=== PATIENT | male | born 1990 | race Caucasian/White ===

== ENCOUNTER 2017-05-23 11:26 | Inpatient (IN) | payer BC ==
[~2017-05-23] VITALS: Ht 167.6 cm; Wt 77.1 kg
--- NOTE | 2017-05-23 11:28 | NUR ---
27 YO MALE TO BED 2A FOR EVAL OF ALOC. [place] AND WAS AT A TRAINING MEETING. PER COWORKERS PATIENT WAS DRAWING A "BEAVER FOR A LONG TIME AND DID NO REMEMBER INCIDENT" . CALL WAS CALLED IN POSSIBLE SEIZURE BUT PATIENT HAS NO HISTORY OF SUCH AND BYSTANDERES SAW NO SEIZURE LIKE ACTIVITY. PLACED ON CM.
--- NOTE | 2017-05-23 11:37 | NUR ---
PATIENT HAS NO COMPLAINTS UPON ARRIVAL.
--- NOTE | 2017-05-23 11:38 | NUR ---
PER MEDIC PATIENT HAS BEEN UNDER ALOT OF STRESS THE LAST FEW WEEKS AND IS ALSO NOT SLEEPING WELL. HE REPORTS EATING NORMALY.
[2017-05-23 12:15] LABS: BASOPHIL % 0.3 % (0-2); PLATELET COUNT 272 x10^3mcL (130-400); RED CELL DISTRIBUTION WIDTH 12.9 % (11.5-14.5)
--- NOTE | 2017-05-23 12:22 | NUR ---
RETURN DROM CT SCAN. PORTABLE CXR TAKEN.
[2017-05-23 12:28] LABS: CALCIUM 9.2 mg/dL (8.5-10.1); CHLORIDE SERUM 99 mmol/L (98-107); CREATININE SERUM 0.8 mg/dL (0.7-1.3); GFR1 > 60 mL/min; GLUCOSE SERUM 116 mg/dL (74-106); POTASSIUM SERUM 3.6 mmol/L (3.5-5.1); SODIUM SERUM 135 mmol/L (136-145)
[2017-05-23 12:32] LABS: ALBUMIN 4.6 g/dL (3.4-5.0); ALKALINE PHOSPHATASE 58 U/L (46-116); ALT/SGPT 65 U/L (16-63); AST/SGOT 20 U/L (15-37); BILIRUBIN TOTAL 0.67 mg/dL (0.20-1.00)
[2017-05-23 12:34] LABS: CHOLESTEROL 121 mg/dL (<200); TOTAL PROTEIN, SERUM 8.3 g/dL (6.4-8.2)
--- NOTE | 2017-05-23 13:20 | NUR ---
PATIENT WAS DISCHARGED AT 1311 AT 1318 I WAS CALLED TO FRONT OD ED LOBBY FOR A "SHAKING MAN" PATIENT APPEARED TO BE HAVINF A SEIZURE FACE DOWN IN THE PLANTER SHAKING. PATIENT WAS TURNED AND PLACED IN W/C WITH ASSISTANCE AND TAKEN BACK TO ROOM 2A. DR CARLOS WAS NOTIFIED AND PATIENT WILL BE ADMITTED FOR NEW ONSET SEIZURE. PLACED ON CM WITH HEAT RATE IN 150'S. IV START.
--- NOTE | 2017-05-23 14:00 | NUR ---
TOOK THE PIG TAIL DRAIN OUT. PT COOPERATED WELL.
--- NOTE | 2017-05-23 15:18 | NUR ---
ATTEMPTED TO CALL REPORT.
--- NOTE | 2017-05-23 15:49 | NUR ---
REPORT TO ROXANNA DELGADO. PATIENT REMAINS STABLE FOR TRANSFER.
[2017-05-23 16:03] VITALS: BP 128/79
[2017-05-23 16:04] LABS: AMPHETAMINE QUAL UR NONE DETECTED (NEG <=1000)
[2017-05-23 16:07] VITALS: BP 128/79
--- NOTE | 2017-05-23 16:14 | NUR ---
RECEIVED PATIENT FROM ED VIA GUERNEY, PATIENT ALERT AND ORIENTED, TELE # 25 ST, IV ACCESS TO LEFT HAND WNL, NO C/O PAIN AT THIS TIME, SEIZURE PRECAUTIONS IN PLACE, ORIENTED PATIENT TO ROOM AND SURROUNDINGS, BED IN LOW POSITION, BED RAILS UP X 2, CALL LIGHT WITHIN REACH, WILL ENDORSE CARE TO PRIMARY NURSE DANNY HENDERSON
[2017-05-23 16:36] LABS: MAGNESIUM 2.3 mg/dL (1.8-2.4); PHOSPHOROUS 2.4 mg/dL (2.5-4.9)
[2017-05-23 16:44] LABS: T3 TOTAL 1.16 ng/mL
--- NOTE | 2017-05-23 16:45 | NUR ---
PT RESTING IN BED. DENIES HEADACHE. NO DISTRESS NOTED.
[2017-05-23 16:50] LABS: FREE T4 1.26 ng/dL (0.76-1.46); FREE THYROXINE INDEX 3.5 ug/dL (1.4-4.5); T4(THYROXINE) 9.7 ug/dL (4.7-13.3)
--- NOTE | 2017-05-23 19:15 | NUR ---
PT IS SLEEPING. NO SIGNS OF SZ NOTED. SZ PRECAUTIONS ON. WILL MONITOR.
--- NOTE | 2017-05-23 19:42 | NUR ---
RECEIVED PATIENT IN BED SLEEPING WITH NO INDICATION OF PAIN AND DISCOMFORT NOTED AT THIS TIME, FAMILY MEMBERS AT BEDSIDE. NO SIGN OF SEIZURE NOTED. SIDERAILS X4 PADDED FPR SEIZURE PRECAUTION. TELE#25 ST /SR ON MONITOR. CLEAR BS TO AUSCULTATION SATTING AT 98% RA. IV TO LEFT HAND INTACT AND INFUSING WELL. WILL CONTINUE TO MONITOR.
[2017-05-23 21:04] LABS: UA SPECIFIC GRAVITY 1.015 (1.005-1.035); microscopic required? YES; urine erythrocyte NEGATIVE (NEGATIVE)
[2017-05-23 21:11] VITALS: BP 126/73
--- NOTE | 2017-05-23 22:22 | NUR ---
NEURO CHECK- PATIENT AWAKE, ALERT AND ORIENTED ABLE TO MAKE NEEDS KNOWN. DENIES NUMBNESS AND WEAKNESS OF THE EXTREMETIES. ABLE TO MOVE ALL EXTREMETIES. SPEECH CLEAR BUT SLOW TO TALK. NO SIGN OF SEIZURE NOTED THIS TIME.
--- NOTE | 2017-05-23 23:43 | NUR ---
SLEEPING WITH NO SIGN OF DISTRESS NOTED, BREATHING EASY AND NONLABOR. AT BEDSIDE.
--- NOTE | 2017-05-24 05:06 | NUR ---
SLEPT AT LONG INTERVALS, NO SIGN OF SEIZURE NOTED THE ENTIRE SHIFT. CHCKED AT INTERVALS FOR NEEDS AND SAFETY. ALL NEEDS ATTENDED. AT BEDSIDE.
[2017-05-24 05:52] VITALS: BP 125/84
--- NOTE | 2017-05-24 06:30 | NUR ---
PATIENT STATED THAT WHEN HE WOKES UP HE FEELS LIKE HE CAN'T BREATHE FOR A FEW MINUTES ONLY AND AFTER THAT HE FEELS BETTER.
[2017-05-24 06:54] LABS: BASOPHIL % 0.4 % (0-2); PLATELET COUNT 226 x10^3mcL (130-400); RED CELL DISTRIBUTION WIDTH 13.2 % (11.5-14.5)
[2017-05-24 06:56] LABS: CALCIUM 8.5 mg/dL (8.5-10.1); CARBON DIOXIDE 29.3 mmol/L (21-32); CHLORIDE SERUM 106 mmol/L (98-107); CREATININE SERUM 0.8 mg/dL (0.7-1.3); GFR1 > 60 mL/min; GLUCOSE SERUM 89 mg/dL (74-106); MAGNESIUM 2.4 mg/dL (1.8-2.4); PHOSPHOROUS 3.6 mg/dL (2.5-4.9); POTASSIUM SERUM 4.2 mmol/L (3.5-5.1); SODIUM SERUM 140 mmol/L (136-145)
--- NOTE | 2017-05-24 07:40 | NUR ---
RECEIVED PATIENT RESTING IN BED COMFORTABLY, A/O X4, CLEAR SPEECH, NO NEURO DEFICITS NOTED. SUKH AT BEDSIDE. TELE # [address], DENIES CHEST PAIN. BREATHING EVEN UNLABBORED ON RA, DENIES SOB, HOB ELEVATED. PATIENT DENIES ANY PAIN. IV TO LH INTACT INFUSING NS AT 100 ML/HR FREE FROM REDNESS AND INFILTRATION. SEIZURE PRECAUTIONS MAINTAINED, NO SEIZURE ACTIVITY NOTED. PATIENT CALM AND COOPERATIVE WITH CARE. INSTRUCTED TO CALL FOR ASSISTANCE IF NEEDED. CALL LIGHT WITHIN REACH, BED IN LOW POSITION. WILL MONITOR.
--- NOTE | 2017-05-24 09:02 | NUR ---
CY AT BEDSIDE FOR ROUTINE EEG PER MD ORDER.
--- NOTE | 2017-05-24 09:17 | NUR ---
ROUNDS MADE- DR. GURROLA, RESIDENT TEAM, CHARGE NURSE AND PRIMARY NURSE AT BEDSIDE. POC REVIEWED WITH PATIENT- PATIENT HAVING EEG DONE- EXPLAINED PROCEDURE AND PURPOSE. PATIENT WILL HAVE MRI TODAY AND WILL NEED TO FOLLOW UP WITH NEUROLOGIST UPON DISCHARGE. ALL QUESTIONS AND CONCERNS ADDRESSED. WILL MONITOR.
[2017-05-24 09:51] VITALS: BP 121/80
--- NOTE | 2017-05-24 10:55 | NUR ---
EEG COMPLETED BY OUTSIDE SERVICE
--- NOTE | 2017-05-24 13:28 | NUR ---
PATIENT TAKEN DOWN TO RADIOLOGY FOR MRI PER MD ORDER.
[2017-05-24 13:54] VITALS: BP 112/73
--- NOTE | 2017-05-24 14:30 | NUR ---
RECEIVED PATIENT BACK FROM RADIOLOGY S/P MRI BRAIN. PATIENT REMAINS IN STABLE CONDITION, REAPPLIED TELE MONITOR, IVF RESUMED. FAMILY AT BEDSIDE. ALL NEEDS ATTENDED TO. SAFETY PRECAUTIONS MAINTAINED. WILL MONITOR.
--- NOTE | 2017-05-24 16:27 | NUR ---
DR. RIVERA (DO-RESIDENT) AT BEDSIDE TO SPEAK WITH PATIENT AND AT BEDSIDE REGARDING HOW PATIENT IS FEELING AND RESULTS. ALL QUESTIONS AND CONCERNS ADDRESSED.
[2017-05-24 17:26] VITALS: BP 117/84
--- NOTE | 2017-05-24 18:37 | NUR ---
SPOKE WITH PATIENTS AND SHE INFORMED ME THAT SHE SPOKE WITH DR. RIVERA ABOUT 2 HOURS AGO AND INFORMED HIM SHE NOTICED PATIENT HAD ABOUT 10 EPISODES WHERE HIS BODY WOULD TENSE UP/CONTRACT. PATIENTS STARTED DOCUMENTING EACH EPISODE SINCE ABOUT 1641 AND NOTICED PATIENT HAD AN EPISODE EVERY [address] RIVERA AND INFORMED HIM OF THE ABOVE. NO NEW ORDERS RECEIVED.
--- NOTE | 2017-05-24 19:00 | NUR ---
REPORT GIVEN TO ABDOUL HENDERSON, ALL QUESTIONS AND CONCERNS ADDRESSED. ALL CARES ENDORSED.
--- NOTE | 2017-05-24 19:22 | NUR ---
RECEIVED PATIENT IN BED SLEEPING WITH NO SIGN OF ACUTE RESPIRATORY DISTRESS NOTED, BREATHING EASY AND NONLABOR. TELE#25, NSR ON MONITOR. CLEAR BS SATTING AT 98% RA. AT BEDSIDE. IV TO LEFT HAND INTACT AND INFUSING WELL. WILL CONTINUE TO MONITOR. CALL LIGHT WITHIN REACH.
--- NOTE | 2017-05-24 20:30 | NUR ---
PATIENT HAD EPISODE OF BODY AND EXTREMETIES TENSE UP WITH EYE NYSTAGMUS FOR ABOUT 2 MINUTES. MD AWARE AND ADVISED TO TRACK DOWN ALL EPISODE. WILL CONTINUE TO MONITOR.
[2017-05-24 20:54] VITALS: BP 123/79
--- NOTE | 2017-05-25 00:06 | NUR ---
PATIENT AWAKE AND AGITATED ATIVAN 1MG IVP GIVEN PRESCRIBED. WILL CONTINUE TO MONITOR. AT BEDSIDE.
--- NOTE | 2017-05-25 05:28 | NUR ---
SLEPT FAIRLY, NO SIGN OF RESPIRATORY DISTRESS NOTED. CHECKED AT INTERVALS FOR NEEDS AND SAFETY. NO SEIZURE ACTIVITY NOTED. AT BEDSIDE.
[2017-05-25 05:31] VITALS: BP 130/76
[2017-05-25 05:32] VITALS: BP 112/73; BP 130/76
--- NOTE | 2017-05-25 07:30 | NUR ---
PT HAD EPISODE OF GENERAL BODY SATHISH. EYES TWITCHING, FACIAL RIGIDITY. PT REMAINED AWARE OF SURROUNDING, WHEN ASKED PT RESPONDED I AM CONSCIOUS DURING EPISODE. PT REPORTS BEING SLEEPY AFTER EPISODE. AT BEDSIDE. CALL LIGHT WITHIN REACH.
--- NOTE | 2017-05-25 08:53 | NUR ---
MEDICAL TEAM IN TO SEE PT. PLAN OF CARE BEING EXPLAINED TO PT AND MOTHER. PT RECEPTIVE OF CARE.
--- NOTE | 2017-05-25 09:43 | NUR ---
PT IN BED, LOW FOWLERS. REPORTS COMFORT. PER MOTHER'S LOG PT HAS HAD SEVERAL SATHISH EPISODES WITH FACIAL TWITCHING. LAST EPISODE AT 0934. PT APPEARS EXHAUSTED, DROWSY, EASILY AWAKEN, CONSCIOUS. CALL LIGHT WITHIN REACH.
[2017-05-25 10:19] VITALS: BP 127/80
[2017-05-25 13:07] VITALS: BP 119/77
--- NOTE | 2017-05-25 13:20 | NUR ---
PT HAVING SATHISH EPISODES EVERY 5 MINUTES x3 PT IS CONSCIOUS OF EVENTS. PT IS ABLE TO STATE WORDS MENTIONED TO HIM DURING EPISODES. ADMINISTERED ATIVAN PER EMAR. PT TOLERATED WELL. CALL LIGHT WITHIN REACH. AT BEDSIDE. WILL CONTINUE TO MONITOR.
--- NOTE | 2017-05-25 16:00 | NUR ---
WHILE PT AMBULATING IN HALLWAYS WITH . PT EXPERIENCED A SPASTIC EVENT, PT SAT ON FLOOR, VITAL SIGNS STABLE AT MOMENT OF. CARDIAC RHYTHM SINUS RHYTHM ON MONITOR. PT CONSCIOUS, DR RIVERA PRESENT. PT DENIED ANY PAIN. PT TRANSPORTED BACK TO ROOM VIA WHEELCHAIR. PT AMBULATED TO BED. WILL CONTINUE TO MONITOR.
[2017-05-25 16:52] VITALS: BP 141/95
--- NOTE | 2017-05-25 18:20 | NUR ---
PT IN BED. PT REMAINS CONSCIOUS THROUGH SPASTIC EPISODES. FAMILY LOGS EPISODES IN NOTEBOOK. PT IS RESPONSIVE TO COMMAND AND IS A&Ox4. CALL LIGHT WITHIN REACH.
[2017-05-25 19:45] VITALS: BP 130/79
--- NOTE | 2017-05-25 20:00 | NUR ---
RECEIVED PT AWAKE ALERT AND VERBALLY RESPONSIVE.DENIES HEADACHE OR DIZZINESS.DENIES CHESTPAIN AT THIS TIME.BP 130/79 MMHG,HR 83.PT ON SEIZURE PRECAUTIONS.PADDED RAILS IN PLACED.IN THE MIDDLE OF CONVERSATIONS WITH FAMILY PT HAD EPISODES OF SEIZURE LIKE EPISODES DESCRIBE BY FAMILY TO STIFFNESS TO ALL EXT.NO DROOLING NOTED.PT AWAKE/ALERT ALL THAT TIME.ADVISED FAMILY NOT TO HOLD DOWN PT EVERY EPISODES JUST KEEP HIM ON HIS SIDES AND OBSERVED.SUCTIONED AND O2 INHALATION ON STANDBY.WILL CONTINUE TO MONITOR.
--- NOTE | 2017-05-25 23:15 | NUR ---
UPDATED DR. ALVAREZ OF FREQUENCEY OF STIFFNESS DESCRIBE BY .MD CAME TO SEE PT AND ,SPOKE WITH AND DISCUSS PLAN TONIGHT AND AGREEABLE.WILL CONTINUE TO MONITOR.
--- NOTE | 2017-05-26 00:44 | NUR ---
PT VOMITED X1 TO FOOD CONTENT VOMITUS.ZOFRAN 4 MG IVP ADMINISTERED.HOB KEPT ELEVATED.WILL CONTINUE TO MONITOR.
--- NOTE | 2017-05-26 03:29 | NUR ---
PT ASLEEP AT THIS TIME WITH MOTHER AND NURSE AT BEDSIDE.NO SEIZURE LIKE ACTIVITY NOTED,HOB KEPT ELEVATED.PADDED RAILS IN PLACED.WILL CONTINUE TO MONITOR.
[2017-05-26 05:47] VITALS: BP 151/86
[2017-05-26 06:05] LABS: BASOPHIL % 0.4 % (0-2); PLATELET COUNT 258 x10^3mcL (130-400); RED CELL DISTRIBUTION WIDTH 13.3 % (11.5-14.5)
--- NOTE | 2017-05-26 06:28 | NUR ---
PT SLEPT WELL AFTER ZOFRAN 4 MG IVP ADMINISTRATION.NO SEIZURE LIKE ACTIVITY OR STIFFNESS NOTED AT THIS TIME.ALL NEEDS MET.WILL CONTINUE TO MONITOR.
--- NOTE | 2017-05-26 07:48 | NUR ---
PT RECEIVED DURING CHANGE OF SHIFT, A/OX4, TELE 23, NSR, DENIES CHEST PAIN, PULSES PRESENT, SCD'S IN USE, LUNGS CTA ON 2L NC, DENIES SOB, BREATHING EVEN AND UNLABORED, BOWEL SOUNDS ACTIVE, LBM 05/26/17, ABLE TO VOID, AMBULATORY, SKIN WARM/DRY/INTACT, DENIES PAIN AT THIS TIME, IV TO LFA SALINE LOCKED, CALL LIGHT WITHIN REACH, FAMILY AT BEDSIDE, CALL LIGHT WITHIN REACH, WILL CONTINUE TO MONITOR.
[2017-05-26 08:09] LABS: CALCIUM 9.1 mg/dL (8.5-10.1); CARBON DIOXIDE 26.3 mmol/L (21-32); CHLORIDE SERUM 101 mmol/L (98-107); CREATININE SERUM 0.7 mg/dL (0.7-1.3); GFR1 > 60 mL/min; GLUCOSE SERUM 96 mg/dL (74-106); SODIUM SERUM 137 mmol/L (136-145)
--- NOTE | 2017-05-26 09:23 | NUR ---
PT DENIES SOB, DENIES PAIN, AT BEDSIDE DIRECTING PT TO SIT DOWN OR TO CALM DOWN, REPORTS ANOTHER EPISODE, CALL LIGHT WITHIN ERACH, WILL CONTINUE TO MONITOR.
--- NOTE | 2017-05-26 10:24 | NUR ---
PT DENIES SOB, DENIES PAIN, TELE 25 DC'D PER 'S ORDERS AND RETURNED TO MONITOR STATION, CALL LIGHT WITHIN REACH, WILL CONTINUE TO MONITOR.
--- NOTE | 2017-05-26 11:17 | NUR ---
PT ASLEEP, NO INDICATION OF PAIN, BREATHING EVEN AND UNLABORED, CALL LIGHT WITHIN REACH, FAMILY AT BEDSIDE, WILL CONTINUE TO MONITOR.
[2017-05-26 11:45] VITALS: BP 151/86
--- NOTE | 2017-05-26 12:15 | NUR ---
PT BEING HELD DOWN BY ERIN HENDERSON AND FAMILY MEMBERS AT TIME PRIMARY RN ARRIVED 1210, PT'S EYES DILATED, PT REGAINING CONSCIOUSNESS AT THAT TIME ON 2L NC, WITH SHALLOW AND RAPID BREATHING, DIAPHORETIC. ERIN RN REPORTS SHE HAD ARRIVE 2MIN EARLIER AND WITNESSED THE SEIZURE, STATES THERE WAS FOAMING AT THE MOUTH AND THE EYES ROLLED BACK, STATED HE WAS CONTRACTED WITH SHALLOW BREATHING AND NON-RESPONSIVE. FAMILY STATES IT BEGAN 20-30SEC BEFORE ERIN RN ARRIVED, TOTAL TIME APPROXIMATELY 2.5MIN.
[2017-05-26 12:41] LABS: PLATELET COUNT 335 x10^3mcL (130-400); RED CELL DISTRIBUTION WIDTH 13.3 % (11.5-14.5)
[2017-05-26 12:56] LABS: CALCIUM 9.8 mg/dL (8.5-10.1); CARBON DIOXIDE 15.7 mmol/L (21-32); CHLORIDE SERUM 97 mmol/L (98-107); CREATININE SERUM 1.3 mg/dL (0.7-1.3); GFR1 > 60 mL/min; GLUCOSE SERUM 107 mg/dL (74-106); POTASSIUM SERUM 3.9 mmol/L (3.5-5.1); SODIUM SERUM 138 mmol/L (136-145)
[2017-05-26 12:59] LABS: BASOPHIL % 0.4 % (0-2)
--- NOTE | 2017-05-26 13:10 | NUR ---
ARRIVED IN PT'S ROOM, PT SHAKING, EYES OPEN, PUPILS NORMAL, SHALLOW RAPID BREATHING, AND REGAINED CONSCIOUSNESS. PT'S MOTHER STATES THIS HAPPENED FOR 10SEC, PT ALERT AND AWAKE.
--- NOTE | 2017-05-26 14:17 | NUR ---
PT ASLEEP, BEGAN TO TENSE UP, INSTRUCTED TO BREATHE BY FAMILY, IMMEDIATELY BEGAN TO RELAX AGAIN, FAMILY REPORTS PT ONLY TAKES OINTMENTS FOR PSORIASIS, FAMILY STATES PT HAS A HX OF CONSTANT H/A, CALL LIGHT WITHIN REACH, WILL CONTINUE TO MONITOR.
[2017-05-26 14:28] VITALS: BP 118/72
--- NOTE | 2017-05-26 15:26 | NUR ---
PT ASLEEP, NO INDICATION OF PAIN, BREATHING EVEN AND UNLABORED, CALL LIGHT WITHIN REACH, FAMILY AT BEDSIDE, WILL CONTINUE TO MONITOR.
--- NOTE | 2017-05-26 16:30 | NUR ---
PT DENIES SOB, DENIES PAIN, C/O FEELING "TIRED" CALL LIGHT WITHIN REACH, FAMILY AT BEDSIDE, WILL CONTINUE TO MONITOR.
[2017-05-26 17:10] VITALS: BP 121/78
--- NOTE | 2017-05-26 17:18 | NUR ---
PT'S FAMILY REPORTED SZ, ATIVAN GIVEN PER EMAR, PT BEGAN TO TENSE BEFORE MED ADMINISTRATION, PT RELAXED MED WAS ABOUT TO BE GIVEN, CALL LIGHT WITHIN REACH, FAMILY AT BEDSIDE, CALL LIGHT WITHIN REACH, WILL CONTINUE TO MONITOR.
[2017-05-26 17:52] LABS: BASOPHIL % 0.1 % (0-2); PLATELET COUNT 312 x10^3mcL (130-400); RED CELL DISTRIBUTION WIDTH 13.4 % (11.5-14.5)
--- NOTE | 2017-05-26 18:11 | NUR ---
FAMILY AT BEDSIDE, DENIES SOB, DENIES PAIN, CALL LIGHT WITHIN REACH, WILL ENDORSE PT TO NEXT SHIFT.
[2017-05-26] MEDS ORDERED: COG1 PO (19:14)
[2017-05-26] MEDS ORDERED: KEPPRA500 MG PO (19:15)
[2017-05-26] MEDS ORDERED: LORAZEPAM1 MG PO (19:16)
[2017-05-26] MEDS ORDERED: ZOLOFT50 MG PO (19:18)
--- NOTE | 2017-05-26 19:20 | NUR ---
PT RECEIVED IN STABLE CONDITION, RESTING AT THIS TIME WITH FAMILY AT BEDSIDE. SALINE LOCK TO LFA, PATENT AND INTACT. SEIZURE PRECAUTIONS MAINTAINED. WILL CONTINUE TO MONITOR.
--- NOTE | 2017-05-26 19:35 | NUR ---
PT A/O X4, WITH FAMILY AT BEDSIDE. MED-SURG, NO TELE. PULSES PALPABLE, NO EDEMA NOTED. LUNG SOUNDS CTA, BREATHING FREELY ON RA, DENIES SOB. ABD SOFT AND NONDISTENDED, BOWEL TONES ACTIVE X4 QUAD. PT VOIDS ADEQUATELY USING URINAL. PT IS AMBULATORY, BUT INSTRUCTED PT TO STAY IN BED TO PREVENT FALLS. SKIN IS INTACT. PT DENIES PAIN AT THIS TIME. SALINE LOCK TO LFA, PATENT AND INTACT. BED IN LOWEST SETTING, SIDE RAILS UP X3, CALL LIGHT WITHIN REACH, SEIZURE PRECAUTIONS MAINTAINED. WILL CONTINUE TO MONITOR.
[2017-05-26] MEDS ORDERED: AMBIEN5 MG PO ×2 (19:39→19:40)
[2017-05-26 19:57] VITALS: BP 121/78
--- NOTE | 2017-05-26 20:30 | NUR ---
PT EXPERIENCING MULTIPLE EPISODES OF DYSTONIA. SEIZURE PRECAUTIONS MAINTAINED. DR BENITEZ NOTIFIED.
--- NOTE | 2017-05-26 21:22 | NUR ---
PT EXPERIENCING MULTIPLE EPISODES OF MUSCLE STIFFNESS, ADMINISTERED ATIVAN ORDERED. PLACED PT ON 02 2L NC. SEIZURE PRECAUTIONS MAINTAINED. PT'S STATES SHE "DOESN'T WANT TO TAKE HIM HOME LIKE THIS." DR GLASER AT BEDSIDE.
--- NOTE | 2017-05-26 21:45 | NUR ---
VEBRAL ORDER RECEIVED FROM DR BENITEZ FOR GIVE ANOTHER 1MG ATIVAN IVP X 1 NOW, MEDS ADMINISTERED.
--- NOTE | 2017-05-26 22:36 | NUR ---
PT PLACED ON TELE #21, SVT AT 157, DR BENITEZ NOTIFIED.
--- NOTE | 2017-05-26 23:30 | NUR ---
REPORT GIVEN FROM SANTIAGO ARMAS, ALL QUESTIONS ADDRESSED, WILL ENDORSE CARE
--- NOTE | 2017-05-27 01:39 | NUR ---
PT LYING IN BED RESTING AT THIS TIME, NO S/S OF DISTRESS. PT NON RESPONSIVE TO VERBAL COMMANDS, PUPILS BRISK DIALATION AND RETRACTION, NO S/S OF HEADACHE. RHONCHI HEARD BUL, RESPIRATIONS EQUAL AND UNLABORED AT THIS TIME. FULL PASSIVE ROM, LIMITED ACTIVE DUE TO NEURO STATUS. WILL CONTINUE TO MONITOR.
--- NOTE | 2017-05-27 03:02 | NUR ---
ADMINISTERED ATIVAN IVP PER ORDERS, X2 SEIZURES NOTED. PATIENT MOANING WELL.
--- NOTE | 2017-05-27 03:17 | NUR ---
PATIENT HAD X2 SEIZURES. SUCTIONED TO PREVENT ASPIRATION AND CONTINUED MONITORING PROVIDED.
--- NOTE | 2017-05-27 03:22 | NUR ---
PATIENT HAD ANOTHER SEIZURE LASTING ABOUT 1 MINUTE. NOTED THAT PATIENT RAISES RIGHT HAND THEN LEFT HAND. THEN BOTH ARM CONTRACT AND FEET AND LEG SHAKE, AND THEN EYES START FLUTTERING. PATIENT STILL NON-VERBAL.
--- NOTE | 2017-05-27 03:38 | NUR ---
RT BOA AT BEDSIDE, TITRATED O2 6L VIA NC, WILL CONTINUE TO MONITOR
--- NOTE | 2017-05-27 03:40 | NUR ---
RT CONTINUING TO CONVULSE 8-10 TIMES AN HOUR, DR BENITEZ AWARE, KEPETRARA ORDERED,WILL CONTINUE TO MONITOR
--- NOTE | 2017-05-27 05:27 | NUR ---
DR ESCALONA AT BEDSIDE ALL QUESTIONS ADDRESSED, O2 TITRATED BACK TO 4L, WILL CONTINUE TO MONITOR.
[2017-05-27 05:51] VITALS: BP 125/76
[2017-05-27 06:45] LABS: PLATELET COUNT 312 x10^3mcL (130-400); RED CELL DISTRIBUTION WIDTH 12.7 % (11.5-14.5)
[2017-05-27 07:08] LABS: CALCIUM 9.3 mg/dL (8.5-10.1); CARBON DIOXIDE 26.8 mmol/L (21-32); CHLORIDE SERUM 105 mmol/L (98-107); CREATININE SERUM 1.4 mg/dL (0.7-1.3); GFR1 > 60 mL/min; GLUCOSE SERUM 73 mg/dL (74-106); MAGNESIUM 2.7 mg/dL (1.8-2.4); PHOSPHOROUS 4.9 mg/dL (2.5-4.9); POTASSIUM SERUM 4.5 mmol/L (3.5-5.1); SODIUM SERUM 145 mmol/L (136-145)
--- NOTE | 2017-05-27 07:16 | NUR ---
REPORT GIVEN TO SANTIAGO CHAMPION, ALL QUESTIONS ADDRESSED, WILL ENDORSE CARE.
--- NOTE | 2017-05-27 07:25 | NUR ---
ASLEEP AT START OF SHIFT, MOANING. SEIZURES PRECAUTIONS. FALL PRECAUTIONS. HOB ELEVATED. TELE 21. MOM ASLEEP BEDSIDE.
--- NOTE | 2017-05-27 08:00 | NUR ---
IN REPORT, PREVIOUS RN MENTIONED PATIENT HAD NOT VOIDED SINCE 8AM YESTERDAY. BLADDER SCAN PERFORMED AND REVEALED APPROXIMATELY 200ML URINE IN BLADDER. MOM BEDSIDE AND THINKS PATIENT VOIDED YESTERDAY EVENING.
[2017-05-27 08:02] LABS: BAND NEUTROPHIL 2 % (0-10); MONOCYTE 7 % (0-7); SEGMENTED NEUTROPHILS 87 % (37-75)
[2017-05-27 08:03] LABS: BASOPHIL 0 % (0-2)
--- NOTE | 2017-05-27 08:13 | NUR ---
RESPONDS TO FIRST NAME BY TRYING TO OPEN EYES, UNABLE TO FOLLOW COMMANDS. NO RESPONSE TO BABINSKI BOTH FEET. PUPILS AT 3MM WITH MINIMAL CONTRACTION WITH LIGHT. TELE 21 HR 121 WITH ELEVATED T-WAVE. TEMP 102.2 TEMPORAL AND 102.4 AXILLARY, MEDICATED WITH TORADOL. IVF NS @ 20 TO LFA. SEIZURES PRECAUTIONS. FALL PRECAUTIONS. 02 AT 4L VIA NC. SPOKE WITH DR PERALTA MADE AWARE WBC 32.1, NA 159, TEMP 102.4, HR [address] ELEVATION. MADE AWARE COOLING MEASURES STARTED AND TORADOL GIVEN. MOM BEDSIDE.
--- NOTE | 2017-05-27 08:44 | NUR ---
PARENTS AND BEDSIDE. VERY EMOTIONAL. AWARE OF PLAN TO TRANSFER TO HIGHER LEVEL OF CARE. OFFERED TO CALL PAINTER INTERIOR FINISH, FAMILY EAGERLY SAID YES.
--- NOTE | 2017-05-27 09:05 | NUR ---
SPOT CHECK OF BLOOD SUGAR 124.
[2017-05-27 09:06] VITALS: BP 118/70
--- NOTE | 2017-05-27 10:07 | NUR ---
DR DESIRMAHONEY IN TO SEE PATIENT AND TALK WITH FAMILY. SPENT OVER AN HOUR DISCUSSING PLAN OF CARE. REFUSED LUMBAR PUNCTURE. RN AND CNAS DID HEAD TO TOE SEARCH FOR BUG BITES AND TICKS, NOTHING FOUND. COOL BATH GIVEN. REPOSITIONED. WHILE DOING SKIN SEARCH, PATIENT OPENED EYES, PULLED HANDS UP TO CHIN WITH ELBOWS OUT. UNABLE TO FOLLOW COMMANDS TO LOOK AT RN OR SQUEEZE HAND. PLACED IN DROPLET ISOLATION.
[2017-05-27 10:15] VITALS: BP 118/70
--- NOTE | 2017-05-27 10:19 | NUR ---
PAGED DR ESCALONA FOR RIDDLE. HAS NOT VOIDED.
--- NOTE | 2017-05-27 10:20 | NUR ---
SPOKE WITH DR IQRA RIDDLE.
--- NOTE | 2017-05-27 10:28 | NUR ---
RIDDLE INSERTED. PHYSICALLY REACTED AT INSERTION BY PUSHING ARMS DOWN AND TURNING MORE ONTO RIGHT SIDE (WAS ALREADY POSITIONED ON RIGHT SIDE). HOB ELEVATED. RIDDLE TO GRAVITY.
--- NOTE | 2017-05-27 12:48 | NUR ---
METALLOGRAPHIC TECHNICIAN BEDSIDE WITH PATIENT AND FAMILY.
[2017-05-27 13:50] VITALS: BP 120/78
--- NOTE | 2017-05-27 14:14 | NUR ---
DR CLAYTON IN TO SEE PATIENT AND SPEAK WITH FAMILY.
--- NOTE | 2017-05-27 14:18 | NUR ---
SPOKE WITH DR ESCALOAN TO CLARIFY IVF RATE.
--- NOTE | 2017-05-27 14:29 | NUR ---
TURNED AND REPOSITIONED. HOT TO TOUCH. TEMP NOW 101.3. COOLING MEASURES BEGUN.
--- NOTE | 2017-05-27 14:45 | NUR ---
MEDICATED WITH TORADOL FOR TEMP 101.3. ICE PACKS IN PLACE. BECOMING MORE ACTIVE IN BED, EYES OPENED, WHEN ASKED TO SQUEEZE NURSES HAND, DID WITH EACH HAND.
--- NOTE | 2017-05-27 15:07 | NUR ---
FAMILY BEDSIDE AND AWARE OF BED AT [facility]. ZOSYN INFUSING, WILL HANG LEVAQUIN WHEN COMPLETED.
--- NOTE | 2017-05-27 15:22 | NUR ---
REPORT CALLED TO YAIMA AT [facility]. PATIENT TO GO TO ROOM 264B.
[2017-05-27] MEDS ORDERED: NOVAPLUS ZOSYN50 ML IV (15:36)
[2017-05-27] MEDS ORDERED: LEVOFLOXACIN I150 ML IV (15:36)
[2017-05-27] MEDS ORDERED: APAP500 MG PO (15:36)
[2017-05-27] MEDS ORDERED: KETOROLAC30 MG/ML IV (15:38)
[2017-05-27] MEDS ORDERED: IPRATROPIUM BROM3 M2 HHN (15:38)
[2017-05-27 16:05] VITALS: BP 115/71
[2017-05-27 16:10] VITALS: BP 115/71
--- NOTE | 2017-05-27 16:20 | NUR ---
OFF FLOOR VIA [employer]. PACKET GIVEN TO [facility]. GLASSES AND ALL BELONGINGS WITH FAMILY.
--- NOTE | 2017-05-27 16:24 | NUR ---
SPOKE WITH DR PERALTA, DR PALACIO HAS BEEN NOTIFIED NOT TO COME.
== END 2017-05-27 16:25 | disposition short-term general hospital (02) | DRG 100 ==
LOC: ED 11:26 → DU 15:03 → MU 05-26 12:24 → DU 05-27 00:20
PROVIDERS: Emergency Medicine; Family Medicine; ADMIT Family Medicine
DX: G40.89 Other seizures (principal); N17.0 Acute kidney failure with tubular necrosis; E87.1 Hypo-osmolality and hyponatremia; E72.20 Disorder of urea cycle metabolism, unspecified; G24.8 Other dystonia; L40.9 Psoriasis, unspecified; G47.00 Insomnia, unspecified; H55.00 Unspecified nystagmus; D72.829 Elevated white blood cell count, unspecified; G90.8 Other disorders of autonomic nervous system; Z53.29 Procedure and treatment not carried out because of patient's decision for other reasons; R00.0 Tachycardia, unspecified; E83.41 Hypermagnesemia; Z68.27 Body mass index [BMI] 27.0-27.9, adult
CPT/HCPCS: 82962; 83880; 84439; A9579; G0480; J1885; J1956; J2060; J2405; J2543; J2800; J3490; J7030; J7620; Q0092